=== PATIENT | male | born 1995 | race Caucasian/White ===

== ENCOUNTER 2020-06-16 02:39 | Emergency (ER) | payer OTHER ==
[~2020-06-16] VITALS: Ht 188 cm; Wt 127.0 kg
[2020-06-16] MEDS ORDERED: CYCLOBENZAPRINE5 MG PO (03:27)
[2020-06-16] MEDS ORDERED: IBUPROFEN 800800 MG PO (03:27)
[2020-06-16] MEDS ORDERED: HYDROCODON-ACE1 EAC7 PO (03:27)
[2020-06-16 03:56] VITALS: BP 146/96
== END 2020-06-16 03:57 | disposition home or self-care (01) ==
LOC: M.ERS 02:39
DX: S39.012A Strain of muscle, fascia and tendon of lower back, initial encounter (principal); S29.012A Strain of muscle and tendon of back wall of thorax, initial encounter; X50.0XXA Overexertion from strenuous movement or load, initial encounter; Y93.89 Activity, other specified; Y92.89 Other specified places as the place of occurrence of the external cause; Y99.8 Other external cause status